=== PATIENT | female | born 1965 | race Caucasian/White ===

== ENCOUNTER 2019-12-13 15:35 | Emergency (ER) | payer OTHER ==
[~2019-12-13] VITALS: Ht 162.6 cm; Wt 77.1 kg
[2019-12-13 16:32] LABS: INFLUENZA A ANTIGEN Negative (Negative); INFLUENZA B ANTIGEN Negative (Negative)
[2019-12-13] MEDS ORDERED: PREDNISONE 20 M20 MG PO (16:37)
[2019-12-13] MEDS ORDERED: AZITHROMYCIN 2250 MG PO (16:37)
[2019-12-13] MEDS ORDERED: ZESTORETIC 20-1 EAC3 PO (17:02)
[2019-12-13] MEDS ORDERED: LISINOPRIL-HCT1 EAC1 PO (17:17)
[2019-12-13] MEDS ORDERED: PROAIR HFA8.5 GM INH (17:17)
[2019-12-13 17:49] VITALS: BP 197/62
== END 2019-12-13 17:52 | disposition home or self-care (01) ==
LOC: M.ERS 15:35
PROVIDERS: Physician Assistant
DX: U07.1 COVID-19 (principal); I10 Essential (primary) hypertension; R05 Cough; Z79.899 Other long term (current) drug therapy